=== PATIENT | female | born 1955 | race Caucasian/White ===

== ENCOUNTER 2017-01-04 09:59 | Outpatient (CLI) | payer MEDICARE | END 2017-01-04 10:00 | disposition home or self-care (01) | LOC: LABHHL 09:59 | PROVIDERS: ATTEND Internal Medicine | DX: F32.9 Major depressive disorder, single episode, unspecified (principal); E78.2 Mixed hyperlipidemia; E03.8 Other specified hypothyroidism; Z79.899 Other long term (current) drug therapy | CPT/HCPCS: 36415; 80061; 83036; 84443 ==

== ENCOUNTER 2017-03-21 12:27 | Outpatient (CLI) | payer MEDICARE ==
--- NOTE | 2017-03-21 13:57 | XRay Report ---
RIGHT FOOT, 3 views: History: Right foot pain. No comparison. There is mild diffuse soft tissue swelling or edema. No soft tissue gas or foreign body. The bony structures are intact. No erosive joint pathology. Small plantar spur. IMPRESSION: Nonspecific soft tissue swelling or edema. Plantar spur.
--- NOTE | 2017-03-22 07:19 | Vascular Lab Report ---
Right Lower Extremity Venous Duplex Study: Reason for Exam: Edema of the right lower extremity. Comments on the Right: All veins visualized are freely compressible without evidence of internal echogenicity. Flow is spontaneous and phasic throughout. No evidence of acute or chronic thrombus is seen in any of the vessels visualized. Comments on the Left: A limited duplex study was done of the proximal veins of the left lower extremity. All veins visualized are freely compressible without evidence of internal echogenicity. Flow is spontaneous and phasic throughout. No evidence of acute or chronic thrombus is seen in any of the vessels visualized. Impression: No evidence of acute or chronic deep venous thrombosis in the right lower extremity.
== END 2017-03-21 12:28 | disposition home or self-care (01) ==
LOC: VAS 12:27
PROVIDERS: ATTEND Internal Medicine
DX: M25.871 Other specified joint disorders, right ankle and foot (principal); M79.671 Pain in right foot; R60.0 Localized edema

== ENCOUNTER 2017-06-03 07:49 | Outpatient (CLI) | payer MEDICARE ==
--- NOTE | 2017-06-03 09:52 | Mammography Report ---
BILATERAL MAMMOGRAM: FINDINGS: The breast tissue is heterogeneously dense, which could obscure detection of small masses (approximately 50%-75% glandular). No mass, distortion, suspicious calcification, or skin change is seen. CAD was utilized. IMPRESSION: Negative mammogram. There is no mammographic evidence of malignancy. RECOMMENDATION: Follow-up per ACS guidelines. BI-RADS CATEGORY: 1 = Negative ACR BI-RADS MAMMOGRAPHIC CODES: 0 = Needs additional imaging evaluation; 1 = Negative; 2 = Benign; 3 = Probably benign; 4 = Suspicious; 5 = Malignant; 6 = Known biopsy-proven malignancy COMMENT: 1. Dense breast tissue, i.e., adenosis, fibrocystic changes, etc., may obscure an underlying neoplasm. 2. Approximately 10% of cancers are not detected with mammography. 3. A negative mammography report should not delay biopsy if a clinically suspicious mass is present. COMMENT: Patient follow-up letters are generated in [facility].
== END 2017-06-03 07:50 | disposition home or self-care (01) ==
LOC: MAMMO 07:49
PROVIDERS: ATTEND Obstetrics & Gynecology
DX: Z12.31 Encounter for screening mammogram for malignant neoplasm of breast (principal)
CPT/HCPCS: 77067; G0202

== ENCOUNTER 2018-08-27 09:18 | Outpatient (CLI) | payer MEDICARE ==
[2018-08-27 11:16] LABS: Basophils % (Auto) 0.6 % (0.0-1.8); Eosinophils # (Auto) 0.1 K/mm3 (0.0-0.4); Eosinophils % (Auto) 3.7 % (0.0-4.3); Hematocrit 37.6 % (30.3-42.9); Hemoglobin 12.2 gm/dl (10.1-14.3); Lymphocytes # (Auto) 1.1 K/mm3 (1.2-5.4); Lymphocytes % (Auto) 27.9 % (13.4-35.0); Mean Corpuscular HGB Conc 33 % (30-34); Mean Corpuscular Volume 97 fl (79-97); Monocytes # (Auto) 0.4 K/mm3 (0.0-0.8); Platelet Count 148 K/mm3 (140-440); Red Blood Count 3.87 M/mm3 (3.65-5.03); Red Cell Distribution Width 13.3 % (13.2-15.2)
[2018-08-27 11:29] LABS: Chol/HDL Ratio 2.45 %; Uric Acid 6.2 mg/dL (3.5-7.6)
[2018-08-27 11:37] LABS: Albumin 4.2 g/dL (3.9-5)
== END 2018-08-27 09:19 | disposition home or self-care (01) ==
LOC: LABHHL 09:18
PROVIDERS: ATTEND Internal Medicine
DX: E03.9 Hypothyroidism, unspecified (principal); D64.9 Anemia, unspecified; E78.5 Hyperlipidemia, unspecified; K21.9 Gastro-esophageal reflux disease without esophagitis; R73.9 Hyperglycemia, unspecified
CPT/HCPCS: 36415; 80053; 80061; 83036; 84146; 84443; 84550; 85025

== ENCOUNTER 2018-10-01 09:02 | Outpatient (CLI) | payer MEDICARE ==
[2018-10-01 11:10] LABS: Basophils % (Auto) 0.6 % (0.0-1.8); Eosinophils # (Auto) 0.1 K/mm3 (0.0-0.4); Eosinophils % (Auto) 2.8 % (0.0-4.3); Hematocrit 38.4 % (30.3-42.9); Hemoglobin 12.7 gm/dl (10.1-14.3); Lymphocytes % (Auto) 24.6 % (13.4-35.0); Mean Corpuscular HGB Conc 33 % (30-34); Mean Corpuscular Volume 95 fl (79-97); Monocytes # (Auto) 0.5 K/mm3 (0.0-0.8); Platelet Count 141 K/mm3 (140-440); Red Blood Count 4.03 M/mm3 (3.65-5.03); Red Cell Distribution Width 13.4 % (13.2-15.2)
[2018-10-01 11:28] LABS: Calcium 9.1 mg/dL (8.4-10.2)
[2018-10-01 12:16] LABS: Creatinine,Urine 27.9 mg/dL (0.1-20.0); Protein/Creatinine Ratio,Urine 1.36
== END 2018-10-01 09:03 | disposition home or self-care (01) ==
LOC: LAB 09:02
PROVIDERS: ATTEND Internal Medicine
DX: E03.9 Hypothyroidism, unspecified (principal); E78.5 Hyperlipidemia, unspecified; R73.9 Hyperglycemia, unspecified
CPT/HCPCS: 36415; 80053; 82570; 84156; 84443; 85025

== ENCOUNTER 2018-12-02 09:26 | Outpatient (CLI) | payer MEDICARE ==
[2018-12-02 10:08] LABS: Hematocrit 36.6 % (30.3-42.9); Hemoglobin 12.4 gm/dl (10.1-14.3); Mean Corpuscular HGB Conc 34 % (30-34); Mean Corpuscular Volume 92 fl (79-97); Platelet Count 135 K/mm3 (140-440); Red Blood Count 3.96 M/mm3 (3.65-5.03); Red Cell Distribution Width 13.5 % (13.2-15.2)
[2018-12-02 10:35] LABS: Calcium 8.6 mg/dL (8.4-10.2)
== END 2018-12-02 09:27 | disposition home or self-care (01) ==
LOC: LAB 09:26
PROVIDERS: ATTEND Internal Medicine
DX: E78.5 Hyperlipidemia, unspecified (principal); R73.9 Hyperglycemia, unspecified; Z13.29 Encounter for screening for other suspected endocrine disorder
CPT/HCPCS: 36415; 80053; 84443; 85027

== ENCOUNTER 2018-12-26 09:34 | Outpatient (CLI) | payer MEDICARE ==
[2018-12-26 11:09] LABS: Basophils % (Auto) 0.6 % (0.0-1.8); Eosinophils # (Auto) 0.1 K/mm3 (0.0-0.4); Eosinophils % (Auto) 2.1 % (0.0-4.3); Hematocrit 34.7 % (30.3-42.9); Hemoglobin 11.9 gm/dl (10.1-14.3); Lymphocytes # (Auto) 1.2 K/mm3 (1.2-5.4); Lymphocytes % (Auto) 27.8 % (13.4-35.0); Mean Corpuscular HGB Conc 34 % (30-34); Mean Corpuscular Volume 92 fl (79-97); Monocytes # (Auto) 0.5 K/mm3 (0.0-0.8); Platelet Count 166 K/mm3 (140-440); Red Blood Count 3.78 M/mm3 (3.65-5.03); Red Cell Distribution Width 13.7 % (13.2-15.2)
[2018-12-26 11:23] LABS: Albumin 4.1 g/dL (3.9-5)
[2018-12-26 11:58] LABS: Calcium 8.9 mg/dL (8.4-10.2)
[2018-12-26 12:40] LABS: Creatinine,Urine 17.8 mg/dL (0.1-20.0); Microalbumin/Creatinine Ratio 567.4 ug/mg; Protein/Creatinine Ratio,Urine 1.01
== END 2018-12-26 09:35 | disposition home or self-care (01) ==
LOC: LAB 09:34
PROVIDERS: ATTEND Internal Medicine
DX: I12.9 Hypertensive chronic kidney disease with stage 1 through stage 4 chronic kidney disease, or unspecified chronic kidney disease (principal); N18.4 Chronic kidney disease, stage 4 (severe); E87.5 Hyperkalemia; E87.2 Acidosis
CPT/HCPCS: 36415; 80048; 82040; 82043; 82570; 84100; 84156; 84443; 85025

== ENCOUNTER 2019-05-11 10:48 | Outpatient (CLI) | payer MEDICARE ==
[2019-05-11 12:22] LABS: Basophils % (Auto) 0.5 % (0.0-1.8); Eosinophils # (Auto) 0.1 K/mm3 (0.0-0.4); Eosinophils % (Auto) 2.4 % (0.0-4.3); Hematocrit 38.7 % (30.3-42.9); Hemoglobin 12.7 gm/dl (10.1-14.3); Lymphocytes % (Auto) 24.8 % (13.4-35.0); Mean Corpuscular HGB Conc 33 % (30-34); Mean Corpuscular Volume 93 fl (79-97); Monocytes # (Auto) 0.5 K/mm3 (0.0-0.8); Monocytes % (Auto) 12.4 % (0.0-7.3); Platelet Count 139 K/mm3 (140-440); Red Blood Count 4.16 M/mm3 (3.65-5.03); Red Cell Distribution Width 13.5 % (13.2-15.2)
[2019-05-11 12:46] LABS: Albumin 4.3 g/dL (3.9-5); Calcium 9.2 mg/dL (8.4-10.2)
[2019-05-11 13:37] LABS: Chol/HDL Ratio 4.01 %
[2019-05-11 15:21] LABS: Creatinine,Urine 25.7 mg/dL (0.1-20.0)
[2019-05-11 17:51] LABS: Microalbumin/Creatinine Ratio 459.1 ug/mg
[2019-05-14 15:53] LABS: Protein/Creatinine Ratio,Urine 0.74
== END 2019-05-11 10:49 | disposition home or self-care (01) ==
LOC: LAB 10:48
PROVIDERS: ATTEND Internal Medicine
DX: I12.9 Hypertensive chronic kidney disease with stage 1 through stage 4 chronic kidney disease, or unspecified chronic kidney disease (principal); N18.4 Chronic kidney disease, stage 4 (severe); E87.2 Acidosis; E03.9 Hypothyroidism, unspecified; E78.5 Hyperlipidemia, unspecified; R73.9 Hyperglycemia, unspecified; I10 Essential (primary) hypertension
CPT/HCPCS: 36415; 80048; 80061; 82040; 82043; 82570; 83036; 84100; 84156; 84443; 85025

== ENCOUNTER 2019-08-20 09:59 | Outpatient (CLI) | payer MEDICARE ==
[2019-08-20 13:06] LABS: Chol/HDL Ratio 2.92 %
== END 2019-08-20 10:00 | disposition home or self-care (01) ==
LOC: LAB 09:59
PROVIDERS: ATTEND Internal Medicine
DX: E78.5 Hyperlipidemia, unspecified (principal)
CPT/HCPCS: 36415; 80061

== ENCOUNTER 2019-09-15 12:13 | Outpatient (CLI) | payer MEDICARE ==
[2019-09-15 12:34] LABS: Basophils % (Auto) 0.7 % (0.0-1.8); Eosinophils # (Auto) 0.1 K/mm3 (0.0-0.4); Eosinophils % (Auto) 2.5 % (0.0-4.3); Hematocrit 36.6 % (30.3-42.9); Lymphocytes # (Auto) 0.8 K/mm3 (1.2-5.4); Lymphocytes % (Auto) 19.1 % (13.4-35.0); Mean Corpuscular HGB Conc 33 % (30-34); Mean Corpuscular Volume 92 fl (79-97); Monocytes # (Auto) 0.5 K/mm3 (0.0-0.8); Monocytes % (Auto) 11.6 % (0.0-7.3); Platelet Count 134 K/mm3 (140-440); Red Blood Count 3.96 M/mm3 (3.65-5.03); Red Cell Distribution Width 13.9 % (13.2-15.2)
[2019-09-15 12:56] LABS: Calcium 8.9 mg/dL (8.4-10.2)
[2019-09-15 12:57] LABS: Bacteria,Urine 1+ /HPF (Negative); Bilirubin,Urine NEG (Negative); Blood,Urine NEG (Negative); Color,Urine Straw (Yellow); Urobilinogen,Urine < 2.0 mg/dL (<2.0)
[2019-09-15 15:39] LABS: Creatinine,Urine 64.1 mg/dL (0.1-20.0); Microalbumin/Creatinine Ratio 458.6 ug/mg; Protein/Creatinine Ratio,Urine 0.66
== END 2019-09-15 12:14 | disposition home or self-care (01) ==
LOC: LAB 12:13
PROVIDERS: ATTEND Internal Medicine
DX: N18.9 Chronic kidney disease, unspecified (principal)
CPT/HCPCS: 36415; 80048; 81001; 82043; 82570; 84156; 85025